=== PATIENT | female | born 1995 | race Caucasian/White ===

== ENCOUNTER 2018-10-16 18:15 | Emergency (ER) | payer BC, OTHER ==
[~2018-10-16] VITALS: Ht 157.5 cm; Wt 60.5 kg
[~2018-10-16 18:15] MED LIST: MOTRIN 600600 MG/TAB PO; NO HOME MEDICATIONS; PERCOCET 325 MG1 TA2 PO; PRENATAL MVI PO
[2018-10-16 18:33] VITALS: BP 129/93; TEMP 99.1
[2018-10-16 20:39] LABS: BASO % 0.4 % (0.0-2.0); EOS % 0.4 % (0-4.0); GRAN # 4.7 (1.4-6.5); GRAN % 65.8 % (42.2-75.2); HEMATOCRIT 33.1 % (37.0-47.0); HEMOGLOBIN 11.9 g/dl (12.5-16.0); LYMPH % 27.3 % (20.0-51.0); MEAN CELL VOLUME 88 fl (80.0-100.0); MEAN CORPUSCULAR HEMOGLOBIN 32 pg (27.0-31.0); MEAN CORPUSCULAR HGB CONC 36 g/dl (33.0-37.0); MEAN PLATELET VOLUME 11.8 fl (7.4-10.4); MONO # 0.4 (0.1-0.6); PLATELET COUNT 167 K/mm3 (130-400); RED BLOOD COUNT 3.76 M/mm3 (4.10-5.30); REDCELL DISTRIBUTION WIDTH-CV 11.8 % (11.5-14.5)
[2018-10-16 20:47] LABS: ALBUMIN 3.9 gm/dL (3.5-5.0); BILIRUBIN,TOTAL 0.4 mg/dL (0.0-1.0); CALCIUM 9.1 mg/dL (8.4-10.2); CREATININE, serum 0.52 mg/dL (0.52-1.25); POTASSIUM 3.2 mmol/L (3.4-5.0)
[2018-10-16 21:38] LABS: COLLECTION METHOD CLEAN CATCH
[2018-10-16 21:43] LABS: MUCOUS Present /lpf; PH 6 (5-8); SQUAMOUS EPITHELIAL 0-2 /hpf; URINE APPEARANCE Clear; URINE BACTERIA Rare /hpf; URINE BILIRUBIN Negative (NEGATIVE); URINE BLOOD Negative (NEGATIVE); URINE COLOR Straw; URINE GLUCOSE Negative (NEGATIVE); URINE KETONE 2+ (NEGATIVE); URINE LEUKOCYTE ESTERASE Negative (NEGATIVE); URINE NITRATE Negative (NEGATIVE); URINE PROTEIN(semi-quant) Negative (NEGATIVE); URINE RBC 0-2 /hpf; URINE UROBILINOGEN Negative (NEGATIVE)
[2018-10-16] MEDS ORDERED: ZOFRAN ODT4 MG PO (22:15)
[2018-10-16 22:55] VITALS: PULSE 89
== END 2018-10-16 22:28 | disposition home or self-care (01) ==
LOC: COL.ER 18:15
PROVIDERS: Emergency Medicine
DX: O21.9 Vomiting of pregnancy, unspecified (principal); O26.892 Other specified pregnancy related conditions, second trimester; E87.6 Hypokalemia; Z79.1 Long term (current) use of non-steroidal anti-inflammatories (NSAID); Z79.899 Other long term (current) drug therapy; Z3A.14 14 weeks gestation of pregnancy
CPT/HCPCS: J0780; J1200; J2405; J7030

== ENCOUNTER 2019-04-11 05:40 | Inpatient (IN) | payer BC, OTHER ==
[~2019-04-11] VITALS: Ht 157.6 cm; Wt 75.0 kg
[2019-04-11] VITALS (17 sets, daily range): BP systolic 104–122; BP diastolic 52–85; PULSE 72–100; TEMP 97.5–98.3
[~2019-04-11 05:40] MED LIST changes: +ZOFRAN ODT4 MG PO
[2019-04-11 06:39] LABS: BASO % 0.3 % (0.0-2.0); EOS # 0.1 (0.0-0.7); EOS % 1.2 % (0-4.0); GRAN # 6.2 (1.4-6.5); GRAN % 65.8 % (42.2-75.2); HEMATOCRIT 36.3 % (37.0-47.0); HEMOGLOBIN 12.5 g/dl (12.5-16.0); LYMPH # 2.3 (1.2-3.4); LYMPH % 24.5 % (20.0-51.0); MEAN CELL VOLUME 95 fl (80.0-100.0); MEAN CORPUSCULAR HEMOGLOBIN 33 pg (27.0-31.0); MEAN CORPUSCULAR HGB CONC 34 g/dl (33.0-37.0); MEAN PLATELET VOLUME 11.5 fl (7.4-10.4); MONO # 0.7 (0.1-0.6); MONO % 7.7 % (1.7-9.3); PLATELET COUNT 166 K/mm3 (130-400); RED BLOOD COUNT 3.82 M/mm3 (4.10-5.30); REDCELL DISTRIBUTION WIDTH-CV 12.9 % (11.5-14.5)
[2019-04-11] MEDS ORDERED: NATURAL IRON65 MG (06:40)
--- NOTE | 2019-04-11 07:12 | NUR ---
0712[facility] 4-10mins. Pt states she can feel tightening with these. TOCO off. US remains on abd but unplugged. Pt up to void. Pt ambulates to OR independently with this RN and Pt's .
[2019-04-12 03:00] VITALS: BP 110/54; PULSE 70; TEMP 98.1
[2019-04-12 08:00] VITALS: BP 102/61; PULSE 77; TEMP 97.8
[2019-04-12] MEDS ORDERED: PERCOCET 325 MG1 TA2 PO (08:18)
[2019-04-12] MEDS ORDERED: IBU600 MG PO (08:18)
--- NOTE | 2019-04-12 10:41 | NUR ---
Initial visit; Parents thanked Waterproof Bag Cutting Machine Operator for offering congratulations and God's blessings to their family for the of their son. Waterproof Bag Cutting Machine Operator thanked them for choosing [facility].
[2019-04-12 16:14] VITALS: BP 104/68; PULSE 76; TEMP 98.1
[2019-04-12 20:55] VITALS: BP 106/59; PULSE 90
[2019-04-13 08:19] VITALS: BP 101/59; PULSE 81
== END 2019-04-13 17:15 | disposition home or self-care (01) | DRG 788 ==
LOC: OB 05:40 → LDR 06:18 → OB 04-13 17:15
PROVIDERS: ADMIT Obstetrics & Gynecology
PROC: 10D00Z1 Extraction of Products of Conception, Low, Open Approach (ICD-10-PCS; principal; 2019-04-11)
DX: O34.211 Maternal care for low transverse scar from previous cesarean delivery (principal); Z3A.39 39 weeks gestation of pregnancy; Z37.0 Single live birth; G43.909 Migraine, unspecified, not intractable, without status migrainosus; O75.89 Other specified complications of labor and delivery
CPT/HCPCS: J0690; J1885; J2270; J2370; J2405; J2590; J3010; J7120

== ENCOUNTER 2022-05-04 02:17 | Inpatient (IN) | payer BC, OTHER ==
[2022-05-04] VITALS (24 sets, daily range): BP systolic 78–135; BP diastolic 56–87; PULSE 67–96; TEMP 97.3–97.9
[~2022-05-04] VITALS: Ht 157.5 cm; Wt 77.7 kg
[~2022-05-04 02:17] MED LIST changes: +IBU600 MG PO; +NATURAL IRON65 MG
--- NOTE | 2022-05-04 02:20 | NUR ---
G3L2 at 36 weeks and 5 days arrives to unit ambulatory with complaint of spontaneous rupture of membranes around 2144. Pt reports feeling small gush at that time but has been feeling more fluid leaking over the last hour. Pt reports good movement. Denies painful contractions or vaginal bleeding. Clean gown on. Pt oriented to room, call light within reach, bed in low and locked position. US and toco explained and applied. Vitals obtained. Admission assessment started. Pt has had 2 previous sections and would be a repeat section. SVE fingertip/thick/high, grossly ruptured with clear fluid. Positive amnitrace.
[2022-05-04 03:25] LABS: BASO % 0.4 % (0.0-2.0); EOS # 0.1 K/mm3 (0.0-0.7); EOS % 0.7 % (0.0-4.0); GRAN # 7.3 K/mm3 (1.4-6.5); GRAN % 70.9 % (42.2-75.2); HEMOGLOBIN 10.1 g/dl (12.5-16.0); LYMPH # 2.2 K/mm3 (1.2-3.4); LYMPH % 21.5 % (20.0-51.0); MEAN CELL VOLUME 86 fl (80.0-100.0); MEAN CORPUSCULAR HEMOGLOBIN 29 pg (27-31); MEAN CORPUSCULAR HGB CONC 33 g/dl (33.0-37.0); MONO # 0.6 K/mm3 (0.1-0.6); MONO % 6.2 % (1.7-9.3); PLATELET COUNT 215 K/mm3 (130-400); RED BLOOD COUNT 3.54 M/mm3 (4.10-5.30)
[2022-05-04 03:26] LABS: HEMATOCRIT 30.3 % (37.0-47.0)
[2022-05-05 04:59] VITALS: BP 118/72; PULSE 60
[2022-05-05] MEDS ORDERED: IBU600 MG PO (08:27)
[2022-05-05] MEDS ORDERED: ROXICODONE 55 MG/TAB PO (08:28)
--- NOTE | 2022-05-05 09:19 | NUR ---
Initial visit; Patient thanked Grooming Salon Manager for offering congratulations and God's blessings for the of their son. Grooming Salon Manager thanked family for choosing [facility].
[2022-05-05 09:21] VITALS: BP 118/66; PULSE 78; TEMP 97.5
[2022-05-05 16:40] VITALS: BP 109/75; PULSE 83; TEMP 97.7
[2022-05-05 20:20] VITALS: BP 122/80; PULSE 80; TEMP 98.7
[2022-05-06 07:30] VITALS: BP 111/66; PULSE 87; TEMP 98.3
== END 2022-05-06 16:15 | disposition home or self-care (01) | DRG 787 ==
LOC: LDRO 02:17 → LDR 02:55 → OB 02:55
PROVIDERS: ADMIT Obstetrics & Gynecology
PROC: 10D00Z1 Extraction of Products of Conception, Low, Open Approach (ICD-10-PCS; principal; 2022-05-04)
DX: O42.913 Preterm premature rupture of membranes, unspecified as to length of time between rupture and onset of labor, third trimester (principal); O99.354 Diseases of the nervous system complicating childbirth; O34.211 Maternal care for low transverse scar from previous cesarean delivery; O99.344 Other mental disorders complicating childbirth; F41.9 Anxiety disorder, unspecified; Z3A.36 36 weeks gestation of pregnancy; Z37.0 Single live birth; G43.909 Migraine, unspecified, not intractable, without status migrainosus; O99.02 Anemia complicating childbirth; D64.9 Anemia, unspecified; O99.824 Streptococcus B carrier state complicating childbirth; O69.81X0 Labor and delivery complicated by cord around neck, without compression, not applicable or unspecified
CPT/HCPCS: J0690; J1885; J2270; J2370; J2405; J2540; J2590; J3010; J7120

== ENCOUNTER → 2022-05-10 | Outpatient (CLI) | payer BC, OTHER ==
[~2022-05-10] MED LIST changes: +ROXICODONE 55 MG/TAB PO
--- NOTE | 2022-05-10 15:09 | NUR ---
Denys into the clinic with 6 day old "Miles" for evaluation and weight check. Miles was born on [birth year] at 36 weeks gestation with weight of 6 #9.5 oz (2990 gm). has been complicated by difficult latch due to prematurity and bottle feeding. Denys states Miles had been only taking 20 mls/feed but in the last 36 hours he has started taking 30-45 ml EBM via bottle 10-12 times per day. She states she is pump 10 oz q 4 hours. Miles's prefeed weight today was noted to be 5# 15 oz (2694 gm), a 9% weight loss since . Miles nursed bilaterally with a total gain of 62 gm. Denys encouraged to continue to feed atleast 60 ml via bottle or have successful nursing session 10-12 times per day. Verbal eduation provided to Denys on managing a large milk supply and being able to achieve a latch when her breasts are over full with milk. Suggested to pump off approx 30 ml prior to latching Miles to allow for Miles to get more hind milk and to make breasts softer and easier to latch on to. Miles will have a weight check with pediatrics 05/11/22. Questions invited and answered. Denys encouraged to continue to bring Miles into clinic with issues and/or for weight checks. Understanding verbalized.
== END ==
LOC: LAC 13:56
DX: Z39.1 Encounter for care and examination of lactating mother (principal)

== ENCOUNTER → 2022-08-04 | Outpatient (CLI) | payer BC, OTHER ==
--- NOTE | 2022-08-04 16:10 | NUR ---
Pt, Tremaine Goodman, presents to walk in clinic with 3 month old baby boy, Miles Goodman, because Miles continues to struggle with latching and . Currently pt is pumping and bottle feeding for most of Miles's feedings, but she feels he nurses well at [facility] in the side-lying position. She states he refuses to side-lye in the daytime. Pt is wondering if Miles is tongue tied. observes Miles does have an indentation in the tip of his tongue when he extends it. The tongue does extend well across the gum line. When the upper, lateral gum line is touched Miles is able to extend shift his tongue laterally but does not raise it to the upper gum. He is not receptive to a suck evaluation; he gaggs easily and does have a high palate. At this visit Miles does not nurse for more than a few minutes at a time before he gets fussy, starts crying but clearly wants to eat. Relatching is very brief. He suck without difficulty on the bottle and pacifier. 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 Discussed further evaluation with a dentist. POC: Contiue Bf as Miles tolerates, pump and bottle feed at other feedings. F/U: As scheduled with doctors, clinic prn. Questions invited and answered.
== END ==
LOC: LAC 15:10
DX: Z39.1 Encounter for care and examination of lactating mother (principal)